=== PATIENT | female | born 1945 | race Caucasian/White ===

== ENCOUNTER 2022-12-16 12:29 | Emergency (ER) | payer OTHER, SELFPAY ==
[2022-12-16 12:31] VITALS: BP 164/73; PULSE 62; RESP 15; TEMP 35.6; O2SAT 99; BMI 22.4
--- NOTE | 2022-12-16 12:44 | PC.NURSE ---
Pt denies loss bowel/bladder. Pt has hx back pain that is similar to this. Pt denies specific injury.
--- NOTE | 2022-12-16 13:23 | ED.BACK ---
HPI - Back Pain/Injury <Miryam Hodge PA-C - Last Filed: 12/16/22 16:54> General Chief Complaint: Back Pain/Injury Stated Complaint: pull a muscle in lower back x4 ago Time Seen by Provider: 12/16/22 13:02 Source: patient History of Present Illness HPI Narrative: Patient is a 77-year-old female with chronic conditions of atrial fibrillation and high blood pressure on vacation from [place], [place] with several friends. She states that she was taking down a suitcase from the top of her car 4 days ago and felt a pain in her right lower back. 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 She denies any numbness in her feet or weakness. She says she is stayed active throughout the last 4 days but she notices the pain seems to be getting worse in his started radiating down her right hip. She denies any burning with urination, frequency nor chest pain nor shortness of breath. She denies any other symptoms aside from this sudden onset of pain in her right back. She states that it hurts to twist and to flex her right hip due to the pain in her right lower back. She denies any trauma. Related Data Previous Rx's Medication Instructions Recorded cyclobenzaprine 5 mg tablet 5 mg PO TID PRN muscle spasm #14 12/16/22 tabs Allergies Allergy/AdvReac Type Severity Reaction Status Date / Time codeine Allergy Hives Verified 12/16/22 13:38 Sulfa (Sulfonamide Allergy Hives Verified 12/16/22 13:38 Antibiotics) losartan [From Cozaar] AdvReac Nausea Verified 12/16/22 13:38 nifedipine AdvReac Nausea Verified 12/16/22 13:38 Penicillins AdvReac Nausea Verified 12/16/22 13:38 Review of Systems <Miryam Hodge PA-C - Last Filed: 12/16/22 16:54> Review of Systems Narrative: Per HPI Patient History <Miryam Hodge PA-C - Last Filed: 12/16/22 16:54> Social History Smoking Status: Unknown if ever smoked Smoking Status: Unknown if ever smoked alcohol intake frequency: holidays/special occasions only Substance Use Type: does not use Exam <Miryam Hodge PA-C - Last Filed: 12/16/22 16:54> Initial Vital Signs Initial Vital Signs: Vital Signs Temperature 96.1 F L 12/16/22 12:31 Pulse Rate 62 12/16/22 12:31 Respiratory Rate 15 12/16/22 12:31 Blood Pressure 164/73 H 12/16/22 12:31 Pulse Oximetry 99 12/16/22 12:31 Oxygen Delivery Method Room Air 12/16/22 12:31 GENERAL: 77 year old patient appears stated age. Well-developed patient, in no acute distress. HEAD: Atraumatic. Normocephalic. EYES: Pupils equal round. NECK: Trachea midline. CARDIOVASCULAR: Regular rate and rhythm without murmurs, gallops, or rubs. RESPIRATORY: Clear to auscultation. Breath sounds equal bilaterally. No wheezes, rales, or rhonchi. EXTREMITIES: No edema or joint tenderness. BACK: No spinal tenderness. No deformity or crepitance. No flank tenderness. Patient has specific point tenderness in right lower back at level of L4-L5. There is a palpable knot which is tender to palpation in this area. She is able to flex and extend both hips and bilateral knees. She does experience more pain with flexion of her right hip. NEURO: AOx3. Patellar DTR 2+ bilaterally SKIN: No rash or erythema of visible areas <Elmer Burnett DO - Last Filed: 12/16/22 16:56> Initial Vital Signs Initial Vital Signs: Vital Signs Temperature 96.1 F L 12/16/22 12:31 Pulse Rate 62 12/16/22 12:31 Respiratory Rate 15 12/16/22 12:31 Blood Pressure 164/73 H 12/16/22 12:31 Pulse Oximetry 99 12/16/22 12:31 Oxygen Delivery Method Room Air 12/16/22 12:31 Course <Miryam Hodge PA-C - Last Filed: 12/16/22 16:54> Orders Ordered: Discontinued Medications Dexamethasone (Dexamethasone 10 Mg/Ml Vial) 10 mg PO NOW ONE Stop: 12/16/22 13:24 Last Admin: 12/16/22 13:39 Dose: 10 mg Documented By: OW Vital Signs Vital signs: Vital Signs - 8 hr 12/16/22 12:31 12/16/22 13:52 Temperature 96.1 F L Pulse Rate 62 79 Respiratory Rate 15 20 Blood Pressure 164/73 H 158/70 H Pulse Oximetry 99 100 Oxygen Delivery Method Room Air Room Air <Elmer Burnett DO - Last Filed: 12/16/22 16:56> Orders Ordered: Discontinued Medications Dexamethasone (Dexamethasone 10 Mg/Ml Vial) 10 mg PO NOW ONE Stop: 12/16/22 13:24 Last Admin: 12/16/22 13:39 Dose: 10 mg Documented By: OW Vital Signs Vital signs: Vital Signs - 8 hr 12/16/22 12:31 12/16/22 13:52 Temperature 96.1 F L Pulse Rate 62 79 Respiratory Rate 15 20 Blood Pressure 164/73 H 158/70 H Pulse Oximetry 99 100 Oxygen Delivery Method Room Air Room Air MDM - Back Pain/Injury <Miryam Hodge PA-C - Last Filed: 12/16/22 16:54> MDM Narrative Medical decision making narrative: Patient is a 77-year-old female with atrial fibrillation on anticoagulant presenting after 4 days of muscle spasms starting after lifting a heavy suitcase from the car. She has no other symptoms neither chest pain, abdominal pain no changes to urination nor numbness down her legs, nor weakness. Physical exam shows a palpable spasm in her right lower back, with consistent pain with right leg flexion and extension. TTR patellar was intact bilaterally 2+. She states that it feels very similar to muscle spasm she is had in the past. Multiple etiologies for patient's symptoms considered including, but not limited to: Back spasm, UTI, disc herniation, sciatica, spinal abscess Prior Charts reviewed: none available Patient was given 10 mg of Decadron by mouth and sent home with a prescription for a muscle relaxer. Findings and discharge diagnosis discussed with patient/family followed by verbalization of understanding. She is agreeable to plan of care. We discussed that she is to follow up in the emergency department if her symptoms should worsen, if she develops abdominal pain, numbness radiating down legs or weakness or other concerning symptom. Discharge Plan Departure Patient Disposition: Home Clinical Impression: Muscle spasm of back Instructions: DI for Back Spasm Activity Restrictions/Additional Instructions: You have been treated today with a steroid for your muscle spasm. I recommend that you apply warm compress to the area of pain in your right lower back, continue gentle [id number] exercises. I have also prescribed a muscle relaxer for you to take this week. Please do not drive after taking as it may make you sleepy. I recommend he follow up with her primary care provider or consider physical therapy to help reduce the occurrence of muscle spasms. Prescriptions: New cyclobenzaprine 5 mg tablet 5 mg PO TID PRN (Reason: muscle spasm) Qty: 14 0RF Stand Alone Forms: Patient Portal/API <Elmer Burnett, - Last Filed: 12/16/22 16:56> [facility] Dr Burnett Co-Sign Statement: I was available for consultation during this patient's emergency department visit. This chart is signed by myself for administrative purposes only. I did not have direct contact with this patient during this visit. They were seen independently by the APC.
[2022-12-16] MEDS: DEXAMETHASONE 10 MG/ML VIAL PO (13:39)
[2022-12-16 13:52] VITALS: BP 158/70; PULSE 79; RESP 20; O2SAT 100
== END 2022-12-16 13:57 | disposition home or self-care (01) ==
PROVIDERS: Emergency Provider Physician Assistant
DX: M62.830 Muscle spasm of back (principal)
CPT/HCPCS: 99283; J1100